=== PATIENT | female | born 1970 | race Caucasian/White ===

== ENCOUNTER → 2019-05-11 | Outpatient (CLI) | payer BC ==
--- NOTE | 2019-05-13 14:19 | US ---
EXAMINATION TYPE: US pelvic complete DATE OF EXAM: 05/11/2019 COMPARISON: None CLINICAL HISTORY: 49-year-old female N92.1 Excessive and frequent menstruation w/irregular cycle. Ble eding x 4 weeks, patient states she usually has normal cycles, 6, para 5, miscarriage 1, hist ory of D&C 11 years ago. TECHNIQUE: Transabdominal sonographic images of the pelvis were acquired. Date of LMP: 04/15/2019 FINDINGS: EXAM MEASUREMENTS: Uterus: 9.8 x 4.8 x 5.7 cm Endometrial Stripe: 1.1 cm Right Ovary: 2.1 x 1.1 x 1.6 cm Left Ovary: 3.1 x 1.9 x 3.2 cm 1. Uterus: anteverted, 1.6cm nabothian cyst seen 2. Endometrium: appears wnl 3. Right Ovary: wnl 4. Left Ovary: 1.8 x 1.7 x 1.7cm cystic area 5. Bilateral Adnexa: wnl 6. Posterior cul-de-sac: wnl IMPRESSION: 1. Endometrial stripe measures 1.1 cm. This should correspond to the secretory phase of the menstrual cycle. 2. A 1.8 cm dominant follicle or functional cyst in the left ovary. 3. No pelvic free fluid.
== END | disposition home or self-care (01) ==
LOC: RADUSMAIN 17:50
PROVIDERS: ATTEND Family Medicine
DX: N92.1 Excessive and frequent menstruation with irregular cycle (principal)
CPT/HCPCS: 76856

== ENCOUNTER → 2019-07-02 | Outpatient (CLI) | payer BC ==
--- NOTE | 2019-07-03 11:48 | MM ---
Reason for exam: screening (asymptomatic). Last mammogram was performed 2 years and 1 month ago. History: Family history of breast cancer in paternal aunt at age 60. Taking estrogen. Taking progesterone for 5 months. Physical Findings: A clinical breast exam by your physician is recommended on an annual basis and results should be correlated with mammographic findings. MG 3D Screening Mammo W/Cad Bilateral CC and MLO view(s) were taken. Prior study comparison: May 30, 2017, left breast MG diagnostic mammo LT w CAD. October 11, 2016, mammogram. There are scattered fibroglandular densities. There is no discrete abnormality. No significant changes when compared with prior studies. ASSESSMENT: Negative, BI-RAD 1 RECOMMENDATION: Routine screening mammogram of both breasts in 1 year.
== END | disposition home or self-care (01) ==
LOC: RADMAMWWP 10:09
PROVIDERS: ATTEND Obstetrics & Gynecology
DX: Z12.31 Encounter for screening mammogram for malignant neoplasm of breast (principal)
CPT/HCPCS: 77063; 77067

== ENCOUNTER → 2020-07-30 | Outpatient (CLI) | payer BC ==
--- NOTE | 2020-08-01 11:08 | MM ---
Reason for exam: screening (asymptomatic). Last mammogram was performed 1 year and 1 month ago. History: Family history of breast cancer in paternal aunt at age 60 and breast cancer in paternal aunt. Taking estrogen. Taking progesterone for 5 months. Physical Findings: A clinical breast exam by your physician is recommended on an annual basis and results should be correlated with mammographic findings. MG 3D Screening Mammo W/Cad Bilateral CC and MLO view(s) were taken. Prior study comparison: July 02, 2019, bilateral MG 3d screening mammo w/cad. May 30, 2017, left breast MG diagnostic mammo LT w CAD. The breast tissue is heterogeneously dense. This may lower the sensitivity of mammography. There is no discrete abnormality. No significant changes when compared with prior studies. ASSESSMENT: Negative, BI-RAD 1 RECOMMENDATION: Routine screening mammogram of both breasts in 1 year.
== END | disposition home or self-care (01) ==
LOC: RADMAMWWP 09:09
PROVIDERS: ATTEND Obstetrics & Gynecology
DX: Z12.31 Encounter for screening mammogram for malignant neoplasm of breast (principal)
CPT/HCPCS: 77063; 77067

== ENCOUNTER 2021-04-09 13:27 | Emergency (ER) | payer BC ==
[2021-04-09] MEDS ORDERED: ACETAMINOPHEN TAB 500 MG TAB PO STA (13:45)
[2021-04-09 13:46] VITALS: PULSE 91
--- NOTE | 2021-04-09 13:48 | ED ---
General Adult HPI - General Stated complaint: covid+, wants infusion Time Seen by Provider: 04/09/21 13:30 Source: patient, RN notes reviewed, old records reviewed - History of Present Illness Initial comments: This is a 51-year-old female who presents emergency part in stating she started having some upper respiratory symptoms and was diagnosed with COVID 2 days ago symptoms started on Tuesday 5 days ago. Patient states she's congested she's not having any shortness of breath or difficulty breathing. Patient states she's lost her sense of smell. Patient states that little diarrhea. Patient denies any chest pain patient denies any abdominal pain. Patient denies any swelling to the legs or calf tenderness. Patient came in to get the antibiotic infusion. - Related Data Allergies Allergy/AdvReac Type Severity Reaction Status Date / Time No Known Allergies Allergy Verified 04/09/21 13:47 Review of Systems ROS Statement: Those systems with pertinent positive or pertinent negative responses have been documented in the HPI. ROS Other: All systems not noted in ROS Statement are negative. General Exam - General Exam Comments Initial Comments: GENERAL: Patient is well-developed and well-nourished. Patient is nontoxic and well-h ydrated and is in mild distress. ENT: Neck is soft and supple. No significant lymphadenopathy is noted. Oropharynx is clear. Moist mucous membranes. Neck has full range of motion without eliciting any pain. EYES: The sclera were anicteric and conjunctiva were pink and moist. Extraocular movements were intact and pupils were equal round and reactive to light. Eyelids were unremarkable. PULMONARY: Unlabored respirations. Good breath sounds bilaterally. No audible rales rhonchi or wheezing was noted. CARDIOVASCULAR: There is a regular rate and rhythm without any murmurs gallops or rubs. ABDOMEN: Soft and nontender with normal bowel sounds. SKIN: Skin is clear with no lesions or rashes and otherwise unremarkable. NEUROLOGIC: Patient is alert and oriented x3. Cranial nerves II through XII are grossly intact. Motor and sensory are also intact. Normal speech, volume and content. Symmetrical smile. MUSCULOSKELETAL: Normal extremities with adequate strength and full range of motion. LYMPHATICS: No significant lymphadenopathy is noted PSYCHIATRIC: Normal psychiatric evaluation. Course Vital Signs 04/09/21 13:36 Temperature 100.4 F H Pulse Rate 91 Respiratory 21 Rate Blood Pressure 158/92 O2 Sat by Pulse 98 Oximetry Medical Decision Making - Medical Decision Making Patient received monoclonal antibodies Disposition Clinical Impression: COVID-19 Disposition: HOME SELF-CARE Instructions (If sedation given, give patient instructions): Coronavirus Disease 2019 (COVID-19) Is patient prescribed a controlled substance at d/c from ED?: No Referrals: Gonzalez Cardenas MD [Primary Care Provider] - 1-2 days Time of Disposition: 15:09
[2021-04-09] MEDS ORDERED: CASIRIVIMAB (REGN10933) (EUA) 600 MG, IMDEVIMAB (REGN10987) (EUA) 600 MG in SODIUM CHLO... IVPB ONE (15:45)
[2021-04-09] MEDS ORDERED: SODIUM CHLORIDE 0.9% 50 ML IVPB ONE (15:45)
[2021-04-09 17:34] VITALS: BP 146/78; RESP 18; TEMP 99.8
== END 2021-04-09 17:34 | disposition home or self-care (01) ==
LOC: EC 13:27
DX: U07.1 COVID-19 (principal)
CPT/HCPCS: 99283

== ENCOUNTER → 2021-06-11 | Outpatient (CLI) | payer BC ==
--- NOTE | 2021-06-11 16:32 | US ---
EXAMINATION TYPE: US mass soft tissue chest/back DATE OF EXAM: 06/11/2021 COMPARISON: NONE CLINICAL HISTORY: R22.2 SWELLING, MASS AND LUMP. Palpable lump upper left chest. No injury. Area of concern scanned. Two oval hyperechoic nonvascular lesions identified. 1= 1.4 x 1.7 x 0.8 cm 2= 0.6 x 0.9 x 0.5 cm Compression pictures taken. IMPRESSION: Above findings favor subcutaneous lipomas. It becomes painful or are felt to enlarge jasiel ging follow-up would BE advised.
== END | disposition home or self-care (01) ==
LOC: RADUSWWP 16:03
PROVIDERS: ATTEND Family Medicine
DX: R22.2 Localized swelling, mass and lump, trunk (principal)

== ENCOUNTER → 2021-08-20 | Outpatient (CLI) | payer BC ==
[2021-08-20 18:14] LABS: Rheumatoid Factor, Qnt <10 IU/mL (0-15); Uric Acid 6.9 mg/dL (2.9-7.7)
[2021-08-21 12:02] LABS: APTT 44 Sec(s) (<43); APTT 1:1 Mix 39 Sec(s) (<43); Dilute Russell Viper Venom 34 Sec(s) (<44)
== END | disposition home or self-care (01) ==
LOC: LABWHC1 12:35
PROVIDERS: ATTEND Nurse Practitioner Adult Health
DX: M25.50 Pain in unspecified joint (principal)
CPT/HCPCS: 36415; 84550; 85613; 85652; 85730; 86038; 86039; 86140; 86235; 86431

== ENCOUNTER 2021-11-02 11:27 | Emergency (ER) | payer BC ==
[2021-11-02 15:08] VITALS: BP 131/79; PULSE 98; RESP 14; TEMP 98
[2021-11-02] MEDS ORDERED: APIXABAN 5 MG TAB PO STA (15:22)
--- NOTE | 2021-11-02 15:24 | ED ---
General Adult HPI - General Chief complaint: Recheck/Abnormal Lab/Rx Stated complaint: Abn US,Blood Clot Time Seen by Provider: 11/02/21 15:02 Source: patient, RN notes reviewed, old records reviewed Mode of arrival: ambulatory Limitations: no limitations - History of Present Illness Initial comments: Patient presents emergency department over concern for blood clot in left leg. Patient recently within the last 2 weeks had a varicose vein procedure performed. Over the last week she has noticed that she is having worsening left thigh tenderness to palpation. She saw her PCP who scheduled an ultrasound for her. Ultrasound was done on outpatient basis and revealed a blood clot within 2 cm of the deep system in the left greater saphenous vein. She was sent here for further evaluation. She denies any hemoptysis, difficulty breathing, chest pain, abdominal pain, nausea, vomiting. Denies any shortness of breath, fevers, chills, cough. His no respiratory complaints at all. Vital signs are within normal limits. No other medical problems at this time. - Related Data Previous Rx's Medication Instructions Recorded Apixaban [Eliquis Starter Pack 5 - 10 mg PO DIRECTED 30 Days 11/02/21 (for VTE)] #1 each Allergies Allergy/AdvReac Type Severity Reaction Status Date / Time No Known Allergies Allergy Verified 11/02/21 12:07 Review of Systems ROS Statement: Those systems with pertinent positive or pertinent negative responses have been documented in the HPI. Review of Systems: CONST: Denies fever EYES: Denies blurry vision ENT: Denies nasal congestion C/V: Denies Chest pain RESP: Denies shortness of breath GI: Denies abdominal pain : Denies dysuria SKIN: Denies rash. MSK: Endorses leg pain. NEURO: Denies headache ROS Other: All systems not noted in ROS Statement are negative. Past Medical History Past Medical History: No Reported History History of Any Multi-Drug Resistant Organisms: None Reported Past Surgical History: No Surgical Hx Reported Past Psychological History: No Psychological Hx Reported Smoking Status: Never smoker Past Alcohol Use History: None Reported Past Drug Use History: None Reported General Exam - General Exam Comments Initial Comments: General: Appears in no acute distress. HEAD: Normal with no signs of head trauma. EYES: EOMI. ENT: Hearing grossly intact, normal oropharynx. RESPIRATORY: Clear breath sounds bilaterally. No wheezes, rales, or rhonchi. No increased work of breathing. No hypoxia. C/V: Regular rate and rhythm. S1 and S2 auscultated, no edema, peripheral pulses 2+ and intact throughout ABD: Abdomen is nondistended. EXT: Normal range of motion, no obvious deformity. Mild tenderness to palpation of the left thigh the anterior aspect. SKIN: No rashes or lesions observed on exposed skin. NEURO: Alert and oriented 4. Limitations: no limitations Course Vital Signs 11/02/21 11/02/21 12:07 15:06 Temperature 98.3 F 98.0 F Pulse Rate 60 98 Respiratory 16 14 Rate Blood Pressure 130/87 131/79 O2 Sat by Pulse 100 98 Oximetry Medical Decision Making - Medical Decision Making Based on the patient's presentation and physical exam, I'm concerned for a superficial venous thrombosis in the left thigh. It is within 2 cm of a deep venous system. She has no symptoms for pulmonary embolism at this time. I do not believe that we require screening laboratory studies. Vital signs are within normal limits. There is no increased work of breathing. Saturations are 100%. She has no other symptoms at this time. I'm suspicious that this is likely a provoked DVT from the recent surgery. However she will require Eliquis. She'll be started on a starter pack. I will give her a dose of 10 mg in the department as well as follow up with vascular surgery. She was in agre ement this plan. I will provide the patient with a prescription for Eliquis starter pack. I instructed the patient to follow up with their PCP in the next 3 days. I provided contact information for follow up with surgery. I explained that the patient should return to the emergency department if they experience any worsening symptoms. Strict return precautions were discussed with the patient. The patient expressed understanding of these instructions. I answered all questions that the patient had. The patient was discharged home in good condition with their prescriptions and follow up information. Disposition Clinical Impression: Acute superficial venous thrombosis of left lower extremity Disposition: HOME SELF-CARE Condition: Good Instructions (If sedation given, give patient instructions): Apixaban (By mouth), Deep Vein Thrombosis (ED) Prescriptions: Apixaban [Eliquis Starter Pack (for VTE)] 5 - 10 mg PO DIRECTED 30 Days #1 each Is patient prescribed a controlled substance at d/c from ED?: No Referrals: Gonzalez Cardenas MD [Primary Care Provider] - 1-2 days Time of Disposition: 15:20
== END 2021-11-02 15:37 | disposition home or self-care (01) ==
LOC: EC 11:27
DX: I82.812 Embolism and thrombosis of superficial veins of left lower extremity (principal)
CPT/HCPCS: 99283

== ENCOUNTER → 2021-11-02 | Outpatient (CLI) | payer BC ==
--- NOTE | 2021-11-02 11:16 | US ---
EXAMINATION TYPE: US venous doppler duplex LE LT DATE OF EXAM: 11/02/2021 10:57 AM COMPARISON: NONE CLINICAL HISTORY: M79.605 PAIN IN LEFT LEG. Pain in left leg at medial knee. No hx of DVT. Patient do es not take blood thinners. *Patient had laser procedure on her left leg 2 weeks ago*. SIDE PERFORMED: Left TECHNIQUE: The lower extremity deep venous system is examined utilizing real time linear array sonog prakash with graded compression, doppler sonography and color-flow sonography. VESSELS IMAGED: Common Femoral Vein Deep Femoral Vein Greater Saphenous Vein * Femoral Vein Popliteal Vein Small Saphenous Vein * Proximal Calf Veins (* superficial vessels) Left Leg: Internal echoes seen within GSV in the groin, thigh, and medial knee area (patient's area of pain). Color defect and internal echoes seen at approximately 1.5 cm from junction with CFV. GSV does not appear to compress at these levels. No evidence of DVT at this time. IMPRESSION: Completely occlusive acute superficial venous thrombosis in the greater saphenous vein ap proaches within 1.5 cm above the junction with the common femoral vein.
== END | disposition home or self-care (01) ==
LOC: RADUSWWP 10:29
PROVIDERS: ATTEND Family Medicine
DX: I82.812 Embolism and thrombosis of superficial veins of left lower extremity (principal)

== ENCOUNTER → 2022-03-10 | Outpatient (CLI) | payer BC ==
--- NOTE | 2022-03-10 15:10 | US ---
EXAMINATION TYPE: US venous doppler duplex LE LT DATE OF EXAM: 03/10/2022 2:58 PM COMPARISON: US 2021 CLINICAL HISTORY: I80.9 PHLEBITIS AND THROMBOPHLEBITIS OF UNSPECIFIE. Follow up SVT in GSV SIDE PERFORMED: Left TECHNIQUE: The lower extremity deep venous system is examined utilizing real time linear array sonog prakash with graded compression, doppler sonography and color-flow sonography. VESSELS IMAGED: Common Femoral Vein Deep Femoral Vein Greater Saphenous Vein * Femoral Vein Popliteal Vein Small Saphenous Vein * Proximal Calf Veins (* superficial vessels) Left Leg: Appears negative for DVT Thrombus seen within GSV at the mid thigh and knee area IMPRESSION: SVT without evidence for DVT at this time.
== END | disposition home or self-care (01) ==
LOC: RADUSWWP 13:28
PROVIDERS: ATTEND Family Medicine
DX: I80.9 Phlebitis and thrombophlebitis of unspecified site (principal)

== ENCOUNTER → 2023-08-12 | Outpatient (CLI) | payer BC ==
--- NOTE | 2023-08-15 14:47 | MM ---
Reason for Exam: Screening (asymptomatic). Last screening mammogram was performed 12 month(s) ago. Patient History: Menarche at age 15. First Full-Term at age 18. Postmenopausal. Patient used Estrogen for 1 year. Progesterone for 1 year, 5 months. Paternal aunt had breast cancer, age 60. Paternal aunt had breast cancer. Risk Values: Kely 5 year model risk: 0.7%. NCI Lifetime model risk: 5.8%. Prior Study Comparison: 07/30/2020 Bilateral Screening Mammogram, [facility]. 08/06/2021 Bilateral Screening Mammogram, [facility]. 08/10/2022 Bilateral MG 3D screening mammo w/cad, [facility]. Tissue Density: There are scattered fibroglandular densities. Findings: Analyzed By CAD. There is an architectural distortion in the outer right craniocaudal view. Closer evaluation is recommended. Left breast appear stable without spiculated or lobular masses clusters of microcalcifications, architectural distortion or other secondary signs of malignancy. Overall Assessment: Incomplete: need additional imaging evaluation, BI-RAD 0 Management: Diagnostic Mammogram of the right breast. A negative mammogram report should not preclude additional follow up of suspicious palpable abnormalities. Patient should continue monthly self breast exam. A clinical breast exam by your physician is recommended on an annual basis and results should be correlated with mammographic findings. Electronically signed and approved by: Sebastián Nicole D.O. Radiologis
== END | disposition home or self-care (01) ==
LOC: RADMAMWWP 07:47
PROVIDERS: ATTEND Family Medicine
DX: Z12.31 Encounter for screening mammogram for malignant neoplasm of breast (principal); Z80.3 Family history of malignant neoplasm of breast; Z78.0 Asymptomatic menopausal state
CPT/HCPCS: 77063; 77067

== ENCOUNTER → 2023-08-17 | Outpatient (CLI) | payer BC ==
--- NOTE | 2023-08-17 09:08 | MM ---
Reason for Exam: Additional evaluation requested from abnormal screening. Last screening mammogram was performed less than 1 month ago. Patient History: Menarche at age 15. First Full-Term at age 18. Postmenopausal. Patient has history of breast feeding. Patient used Estrogen for 1 year. Progesterone for 1 year, 5 months. Paternal aunt had breast cancer. Risk Values: Kely 5 year model risk: 0.7%. NCI Lifetime model risk: 5.8%. Prior Study Comparison: 03/25/2008 Screening Mammogram, [facility]. 04/16/2009 Screening Mammogram, [facility]. 03/21/2015 Left Diagnostic Ultrasound, [facility]. 10/11/2016 Screening Mammogram, Unknown. 05/30/2017 Left Diagnostic Mammogram, [facility]. 05/30/2017 Left Diagnostic Ultrasound, [facility]. 07/02/2019 Bilateral Screening Mammogram, [facility]. 07/30/2020 Bilateral Screening Mammogram, [facility]. 08/06/2021 Bilateral Screening Mammogram, [facility]. 08/10/2022 Bilateral MG 3D screening mammo w/cad, [facility]. 08/12/2023 Bilateral MG 3D screening mammo w/cad, [facility]. Tissue Density: Right: There are scattered fibroglandular densities. Findings: Analyzed By CAD. Under compression the area of suspected distortion is less suspicious for a precautionary six-month follow-up is recommended. Mediolateral view appears unremarkable. Overall Assessment: Probably benign, BI-RAD 3 Management: Diagnostic Mammogram of the right breast in 6 months. A negative mammogram report should not preclude additional follow up of suspicious palpable abnormalities. Patient should continue monthly self breast exam. A clinical breast exam by your physician is recommended on an annual basis and results should be correlated with mammographic findings. Electronically signed and approved by: Sebastián Nicole D.O. Radiologis
== END | disposition home or self-care (01) ==
LOC: RADMAMWWP 08:42
PROVIDERS: ATTEND Family Medicine
DX: R92.321 Mammographic fibroglandular density, right breast (principal); Z78.0 Asymptomatic menopausal state; Z80.3 Family history of malignant neoplasm of breast
CPT/HCPCS: 77061; 77065

== ENCOUNTER → 2023-08-25 | Outpatient (CLI) | payer BC ==
--- NOTE | 2023-08-25 09:44 | USB ---
Reason for Exam: Clinical finding. Patient History: Menarche at age 15. First Full-Term at age 18. Postmenopausal. Patient has history of breast feeding. Patient used Estrogen for 1 year. Progesterone for 1 year, 5 months. Paternal aunt had breast cancer. Risk Values: Kely 5 year model risk: 0.7%. NCI Lifetime model risk: 5.8%. Technique: Method: Targeted. Prior Study Comparison: 08/10/2022 Bilateral MG 3D screening mammo w/cad, [facility]. 08/12/2023 Bilateral MG 3D screening mammo w/cad, [facility]. 08/17/2023 Right MG 3D work up w/cad RT, [facility]. Findings: The area of palpable concern of the right breast, the medial section of the breast of the right breast and the retroareolar of the right breast were scanned. Hyperechoic lesion noted subcutaneous region right 2:00 position 7 cm from the nipple measuring 5 x 3 mm. This is compatible with lipoma. No additional solid masses seen. Overall Assessment: Benign, BI-RAD 2 Management: Screening Mammogram of both breasts in 1 year. A clinical breast exam by your physician is recommended on an annual basis and results should be correlated with mammographic findings. This exam should not preclude additional follow-up of suspicious palpable abnormalities. Results were given to the patient verbally at the time of exam. Electronically signed and approved by: Gene Espino M.D. Radiologis
== END | disposition home or self-care (01) ==
LOC: RADUSWWP 09:11
PROVIDERS: ATTEND Family Medicine
DX: N63.14 Unspecified lump in the right breast, lower inner quadrant (principal); Z78.0 Asymptomatic menopausal state; Z80.3 Family history of malignant neoplasm of breast

== ENCOUNTER 2024-02-17 07:28 | Day surgery (SDC) | payer BC ==
[2024-02-15 12:00] VITALS: BMI 44.4
[2024-02-17] MEDS: IV FLUID CONTINUATION 1,000 ML IV ONE (07:50)
[2024-02-17 08:15] VITALS: TEMP 97
[2024-02-17] MEDS: LACTATED RINGERS 1,000 ML IV SCH (08:16)
[2024-02-17] MEDS ORDERED: LIDOCAINE 1% INJ 10MG/ML (20 ML MDV) ONE (08:16)
[2024-02-17] MEDS ORDERED: PROPOFOL 10 MG/ML 20 ML VIAL IV ONE (08:16)
--- NOTE | 2024-02-17 08:42 | P.PCN ---
Date of Procedure: 02/17/24 Procedure(s) Performed: Brief history: Patient is a pleasant 54-year-old white female scheduled for an elective upper endoscopy as well as colonoscopy as a part of evaluation of intermittent heartburn, epigastric pain and screening for colon cancer Procedure performed: Esophagogastroduodenoscopy with biopsy Colonoscopy Preoperative diagnosis: GERD Screening for colon cancer Anesthesia: MAC Procedure: After informed consent was obtained from the patient was brought into the endoscopy unit and IV sedation was administered by anesthesia under continuous monitoring. Initially upper endoscopy was done. The Olympus GF 160 video endoscope was inserted inserted into the mouth and esophagus intubated without any difficulty and was gradually advanced into the stomach and duodenum and carefully examined. The bulb and second part of the duodenum appeared normal. The scope was then withdrawn into the stomach adequately insufflated with air and upon careful examination the antrum had linear areas of erythema consistent with gastritis and biopsies were done from this area. There is small gastric polyps noted in the gastric body which was biopsied. Rest of the body, cardia and fundus appeared normal. The scope was then withdrawn into the esophagus. The GE junction was located at 40 cm to the incisors. It appeared regular superficial erosions consistent with LA grade B reflux esophagitis.. Rest of the esophagus appeared normal. Patient tolerated the procedure well. At this time the patient continued to remain sedation. Initial digital rectal examination was normal. Olympus CF 160 video colonoscope was then inserted into the rectum and gradually advanced to the cecum without any difficulty. Careful examination was performed as the scope was gradually being withdrawn. The prep was excellent. The cecum, ascending colon, transverse colon, descending colon, sigmoid colon and rectum appeared normal. Retroflexion was performed in the rectum and no lesions were noted. Patient tolerated the procedure well. Impression: 1. Upper endoscopy revealed mild antral gastritis, LA grade B reflux esophagitis and small gastric polyps 2. Colonoscopy was within normal limits with no evidence of colorectal neoplasia Recommendations: Findings of this examination were discussed with the patient as well as her family. She was advised to follow-up with the biopsy results. Recommend Pepcid 20 mg twice daily and was briefly educated about antireflux measures. Recommend repeat screening colonoscopy in 10 years.
[2024-02-17 08:54] VITALS: RESP 16
[2024-02-17 09:06] VITALS: BP 133/76; PULSE 57
== END 2024-02-17 09:41 | disposition home or self-care (01) ==
LOC: ORWHC2ENDO 07:28
PROVIDERS: ATTEND Internal Medicine Gastroenterology
DX: Z12.11 Encounter for screening for malignant neoplasm of colon (principal); K29.50 Unspecified chronic gastritis without bleeding; K31.7 Polyp of stomach and duodenum; K21.00 Gastro-esophageal reflux disease with esophagitis, without bleeding; G47.33 Obstructive sleep apnea (adult) (pediatric); K21.9 Gastro-esophageal reflux disease without esophagitis; E66.01 Morbid (severe) obesity due to excess calories; Z68.30 Body mass index [BMI] 30.0-30.9, adult; Z79.899 Other long term (current) drug therapy
CPT/HCPCS: 43239; 45378; 88305